=== PATIENT | female | born 1955 | race Hispanic/Latino ===

== ENCOUNTER 2019-05-15 21:43 | Observation (INO) | payer BC, OTHER ==
[~2019-05-15] VITALS: Ht 154.9 cm; Wt 101.2 kg
[~2019-05-15 21:43] MED LIST: ASPIRIN325 MG PO; CENTRUM SILVER1 EAC1 PO; EVISTA60 MG PO; GLIMEPIRIDE4 MG PO; GLIPIZIDE10 MG PO; HYDROCHLOROTHIA25 MG PO; METOPROLOL TART50 MG PO; NITROSTAT0.4 MG SL; NOVOLIN N100 UNIT/2 SC; OS-CAL 500+D C1 EAC1 PO; PLAVIX75 MG PO; PRAVASTATIN SOD20 MG PO; QUINAPRIL HCL40 MG PO; ROBAXIN500 MG PO; TRIAMTERENE-HCTZ1 EA PO
--- OUTSIDE RECORDS SUMMARY | 2019-05-15 21:47 | XMS REPORT ---
Author Author [facility] Address Unknown Phone Unavailable Care Team Providers Care Multimedia Technician Name Role Phone Unavailable Unavailable Payers Payer Name Policy Type Policy Number Effective Date Expiration Date Problems This patient has no known problems. Allergies, Adverse Reactions, Alerts Allergy Name Allergy Type Status Severity Reaction(s) Onset Date Inactive Date Treating Clinician Comments No Known Allergies DA Active U 2018-09-25 00:00:00 No Known Allergies DA Active U 2013-03-23 00:00:00 Medications This patient has no known medications. Results Test Description Test Time Test Comments Text Results Atomic Results Result Comments VAGINA,BIOPSY 2018-09-29 17:19:00 RUN DATE: 09/29/18 [employer] PAGE 1 RUN TIME: 1719 Specimen Inquiry RUN USER: INTERFACE PATIENT: YOSSI MARTINS LOC: [place] U #: [id number] AGE/SX: 62/F ROOM: RE09/26/18[facility] DR: Savanna Wilcox MD : 55 BED: DIS: [place] [facility] [place] SPEC #: [id number] RECD: 09/27/18 STATUS: KARYN REKira #: [id number] CHRISTIE: 09/26/18 [facility] DR: Savanna Wilcox MD ENTERED: 09/27/18 SP TYPE: BX VAGINA OTHR DR: Olman Patel MD ORDERED: GROSS COPIES TO: Olman Patel MD [address] [place] [address] Savanna Wilcox MD [address] [address] PROCEDURES: GROSS (09/29/18-8428) TISSUES: VAGINA, NOS - LESION CLINICAL HISTORY COLLECTION DATE: 09/26/2018 VAGINAL LESION COMMENT Intradepartmental consultation: DMW FINAL DIAGNOSIS Vaginal lesion, biopsy: NODULAR FRAGMENTS OF MARKEDLY INFLAMED GRANULATION TISSUE AND GLYCOGENATED SQUAMOUS MUCOSA COMPATIBLE WITH VAGINAL MUCOSA WITH MILD SUBMUCOSAL CHRONIC INFLAMMATION NEGATIVE FOR MALIGNANCY RRB/gm D [id number] CONTINUED ON NEXT PAGE RUN DATE: 09/29/18 [facility] PAGE 2 RUN TIME: 1719 Specimen Inquiry RUN USER: INTERFACE ---SPEC #: [id number] PATIENT: YOSSI MARTINS #[id number] (Continued) MACROSCOPIC The specimen is received in formalin, labeled with the patient's name, and identified as "Vaginal lesion". It consists of multiple small biopsies of light peter-white and peter-pink tissue ranging from 0.1 cm to up to 0.5 x 0.3 x 0.2 cm. The tissue is entirely submitted for histologic evaluation in a single cassette. GROSS PERFORMED AT [facility] [address] [place] [id number] (p)[phone] MICROSCOPIC MICROSCOPIC PERFORMED AT [facility] All of the stains, including any controls performed, stain appro priately. [facility] [address] [place] [id number] (p)[phone] PERFORMING SITE Processed at: [facility] [address] [place] [id number] Signed SIGNATURE ON FILE Rafael Hunt 09/29/18 1719 END OF REPORT
[2019-05-15] MEDS ORDERED: SODIUM CHLORIDE 0.9% 1000ML 1,000 ML IV STA (21:54)
[2019-05-15] MEDS ORDERED: ONDANSETRON HCL INJ 2MG/ML 2ML 2 MG/ML VIAL IV ONE (21:54)
[2019-05-15] MEDS ORDERED: FAMOTIDINE 20 MG/2 ML VIAL IV ONE (21:55)
[2019-05-15] MEDS ORDERED: MECLIZINE HCL 12.5 MG TAB PO ONE (22:30)
[2019-05-15 22:37] LABS: BASOPHILS # (AUTO) 0.1 (0.0-0.1); BASOPHILS % 0.8 % (0.0-1.0); EOSINOPHILS # (AUTO) 0.3 (0.0-0.4); EOSINOPHILS % 3.6 % (0.0-6.0); HEMATOCRIT 40.4 % (34.2-44.1); HEMOGLOBIN 13.7 g/dL (12.0-16.0); LYMPHOCYTES # (AUTO) 2.5 (1.0-3.2); LYMPHOCYTES % 30.1 % (18.0-39.1); MEAN CORPUSCULAR HEMOGLOBIN 28.6 pg (28-32); MEAN CORPUSCULAR HGB CONC 33.9 g/dL (31-35); MEAN CORPUSCULAR VOLUME 84.3 fL (81-99); MONOCYTES # (AUTO) 0.8 (0.2-0.8); MONOCYTES % 8.9 % (4.4-11.3); NEUTROPHILS # (AUTO) 4.7 (2.1-6.9); NEUTROPHILS % 56.1 % (38.7-80.0); PLATELET COUNT 227 x10e3/uL (140-360); RED BLOOD COUNT 4.79 x10e6/uL (3.6-5.1); RED CELL DISTRIBUTION WIDTH 12.4 % (11.7-14.4)
[2019-05-15 22:56] LABS: ANION GAP 18.9 mmol/L (8-16); CALCIUM 9.8 mg/dL (8.4-10.2); CREATININE, SERUM 1.85 mg/dL (0.57-1.11); POTASSIUM 3.9 mmol/L (3.5-5.1)
[2019-05-15 23:03] LABS: CREATINE KINASE MB 1.2 ng/mL (0-5.0)
--- NOTE | 2019-05-15 23:06 | Diagnostic Imaging Report ---
History:Dizziness Comparison studies: None Technique: Axial images were obtained from the skull base to the vertex. Coronal and sagittal reconstructions obtained from the axial data. Dose modulation, iterative reconstruction, and/or weight based adjustment of the mA/kV was utilized to reduce the radiation dose to as low as reasonably achievable. Findings: Scalp/skull: No abnormalities. No fractures, blastic or lytic lesions. Extra-axial spaces: No masses. No fluid collections. Brain sulci: Appropriate for age. Ventricles: Normal in size and configuration. No hydrocephalus. Parenchyma: No abnormal densities. No masses, hemorrhage, acute or chronic cortical vascular insults. Sellar/suprasellar region: No abnormalities Craniocervical junction: Patent foramen magnum. No Chiari one malformation. Atherosclerotic calcifications of the carotid siphons. IMPRESSION: No acute abnormalities . Signed by: DR Kar Addison M.D. on 05/15/2019 11:02 PM
[2019-05-16] VITALS (8 sets, daily range): BP systolic 117–170; BP diastolic 56–73
--- NOTE | 2019-05-16 00:05 | NUR ---
pt reports feels better after medications. awake alert skin w/d resp nonlab. nad noted.
[2019-05-16] MEDS ORDERED: ASPIRIN 81 MG CHEW TAB PO ONE (00:30)
--- NOTE | 2019-05-16 00:43 | NUR ---
PT PLACED ON TELE BOX 19
[2019-05-16] MEDS ORDERED: LOSARTAN POTAS100 MG PO (00:54)
[2019-05-16] MEDS ORDERED: METHOCARBAMOL500 MG PO (00:54)
[2019-05-16] MEDS ORDERED: TRESIBA SC ×2 (00:54)
[2019-05-16] MEDS ORDERED: GABAPENTIN600 MG PO (00:54)
[2019-05-16] MEDS ORDERED: DEXTROSE 50% SYRINGE 50 ML IV PRN ×2 (01:00→08:30)
--- NOTE | 2019-05-16 01:00 | NUR ---
Patient arrived to the unit from er in a stretcher with c/o nausea,vomiting,chest pain.aaox3.feels diziness.voided.currently no chest pain.assessment done.no resp.distress.tele#[address]iv to left ac saline lock.oriented to the unit.bed locked and in lowest position.phone and call light within reach.instructed to call for assistance as needed.family member at bed side.keep monitor the pt.
[2019-05-16 01:15] LABS: CREATINE KINASE MB 1.2 ng/mL (0-5.0)
--- NOTE | 2019-05-16 01:37 | Diagnostic Imaging Report ---
EXAMINATION: CHEST SINGLE (PORTABLE) INDICATION: Dizzy. High blood pressure. COMPARISON: None FINDINGS: TUBES and LINES: None. LUNGS: Lungs are well inflated. Lungs are clear. There is no evidence of pneumonia or pulmonary edema. PLEURA: No pleural effusion or pneumothorax. HEART AND MEDIASTINUM: Cardiac size is mildly enlarged. BONES AND SOFT TISSUES: No acute osseous lesion. Degenerative changes of the right AC joint. UPPER ABDOMEN: No free air under the diaphragm. IMPRESSION: No acute thoracic abnormality. Signed by: Dr. Binu Miller M.D. on 05/16/2019 1:33 AM
--- NOTE | 2019-05-16 06:37 | NUR ---
CONSULTS INFORMED TO ANSWERING SERVICE.
--- NOTE | 2019-05-16 07:00 | NUR ---
BEDSIDE SHIFT REPORT RECEIVED PT IN STABLE CONDITION, DENIES PAIN, CO DIZZINESS WHEN STANDING, NO OTHER CO VOICED CALL LIGHT IN REACH WILL CONTINUE TO MONITOR
--- NOTE | 2019-05-16 07:15 | NUR ---
Bedside shift report given to the oncoming rn.stable condition.no chest pain noted.
[2019-05-16] MEDS ORDERED: NITROGLYCERIN 0.4 MG SUBL SL PRN (08:30)
[2019-05-16] MEDS ORDERED: INSULIN GLARGINE 100 UNITS/ML VIAL SQ ONE (09:00)
[2019-05-16] MEDS: METHOCARBAMOL 500 MG TAB PO SCH (09:00)
[2019-05-16] MEDS: MULTIVITAMINS/MINERALS TAB PO SCH (09:39)
[2019-05-16] MEDS: ASPIRIN 325 MG TAB PO SCH (09:39)
[2019-05-16] MEDS: GLIPIZIDE 5 MG TAB PO SCH ×2 (09:39→17:00)
[2019-05-16] MEDS: GABAPENTIN 300 MG CAP PO SCH ×2 (09:40→17:00)
[2019-05-16] MEDS: SODIUM CHLORIDE 0.45% 1,000 ML IV SCH (09:40)
[2019-05-16 10:40] LABS: CREATINE KINASE MB 1.2 ng/mL (0-5.0)
[2019-05-16] MEDS: INSULIN LISPRO 100 UNIT/1 ML 3ML VIAL SQ SCH ×3 (12:33→21:56)
--- NOTE | 2019-05-16 12:34 | History and Physical ---
PRIMARY CARE PHYSICIAN: Olman Patel MD GARMENT CUTTER: Tarun Plasencia MD CHIEF COMPLAINT: Chest pain. History of coronary artery disease with two stents. HISTORY OF PRESENT ILLNESS: This is a 63-year-old female with left-sided typical chest pain. She does have baseline coronary artery disease with two previous stent years ago. The patient is otherwise stable. Baseline diabetes type 2, on insulin therapy, hypertension, dyslipidemia. The patient's cardiac enzyme preliminary is negative. She does have chronic kidney disease. The patient is otherwise stable. PAST MEDICAL HISTORY: Chronic kidney disease, stage not yet available. Diabetes type 2, on insulin therapy, carpal tunnel syndrome. Hypertension, osteoarthritis. Dyslipidemia. PAST SURGICAL HISTORY: Again, two coronary artery stents. Cholecystectomy. Complete hysterectomy. Lens implant. Right CTS. REVIEW OF SYSTEMS: Chest pain. No nausea. No vomiting. No abdominal pain. PHYSICAL EXAMINATION: VITAL SIGNS: Temperature is 98, blood pressure 142/61, pulse rate 56, and respirations 18. GENERAL: The patient is not in acute distress. HEENT: Normocephalic, atraumatic. Pupils reactive. Anicteric. NECK: Supple grossly. PULMONARY: Clear. CARDIOVASCULAR: Bradycardia. ABDOMEN: Soft, obese. EXTREMITIES: No cyanosis or edema. NEUROLOGIC: No focal deficit. LABORATORY DATA: Sodium is 137, potassium 3.9, chloride 99, bicarb 23, BUN 44, creatinine 1.8, glucose 363. WBC is 8.3, hemoglobin 13.7, hematocrit 40.4, platelets is 227. EKG is still pending. Cardiac enzymes negative. BMI is 42.13. AST 22, ALT 28, alkaline phosphate 106, total bilirubin 0.3. IMPRESSION: 1. Atypical chest pain associated with coronary artery disease with previous two stent associated with multiple risk factors, diabetes type 2, dyslipidemia, hypertension. 2. Bradycardia, most likely secondary to beta-magda. The patient is taking that at home. 3. Moderate obesity associated with multiple chronic medical illness. 4. Chronic kidney disease, stage not available at this time. PLAN: IV fluid rehydration. Insulin sliding scale coverage to home medication. Echocardiogram to 12-lead EKG. Consultation with Dr. Tarun Plasencia. The patient may benefit from nuclear stress test. Crhistian King MD JT/MODL /[id number]
--- NOTE | 2019-05-16 15:00 | Diagnostic Imaging Report ---
Examination: MRI BRAIN WO CONTRAST History: Dizziness. Comparison studies: Head CT dated May 15, 2019 Technique: Sagittal T2; axial DWI, FLAIR, GRE or SWI, T1, Coronal FLAIR. Intravenous contrast: None Findings: Scalp: No abnormal signal. No masses. Bone marrow: Normal in signal intensity. Brain volume: Adequate for age. No volume loss. Ventricles: Normal in size and configuration. No hydrocephalus. Extra-axial spaces: No abnormalities. Parenchyma: No masses, hemorrhage, or acute or chronic vascular insults. Suprasellar and sellar region: CSF filled sella. Craniocervical junction: No abnormalities. The foramen magnum is patent. No Chiari malformations. Vessels: Normal flow-voids in the arteries and sinuses. Additional findings:Bilateral slitlike orbital lenses. IMPRESSION: No acute intracranial abnormalities. Signed by: Dr. Courtney Lin M.D. on 05/16/2019 2:56 PM
--- NOTE | 2019-05-16 15:30 | NUR ---
DOWN TO NUCLEAR MEDICINE, LEFT IN STABLE CONDITION
--- NOTE | 2019-05-16 16:30 | NUR ---
BACK TO NO DISTRESS NOTED, IVF RECONNECTED, CALL LIGHT IN REACH WILL CONTINUE TO MONITOR
[2019-05-16 18:04] LABS: CREATINE KINASE MB 1.2 ng/mL (0-5.0)
--- NOTE | 2019-05-16 18:50 | NUR ---
Got report from oncoming nurse. Patient in bed. Call light within reach.
--- NOTE | 2019-05-16 18:55 | Consultation ---
DATE OF CONSULTATION: 05/16/2019 Cardiology Consultation Ms. Burkett is a pleasant 63-year-old woman, who presented to the emergency room with a complaint of weakness and dizziness. HISTORY OF PRESENT ILLNESS: The patient reports she was eating some candy, was attending a family event outdoors in the heat, felt weak and dizzy and thinking that she might pass out. Notably, she says a fingerstick blood sugar at that time showed a glucose of 479. She denies chest pain or palpitations. PAST MEDICAL HISTORY: Long and complex with type 2 adult onset diabetes, obesity, hypertension, known coronary artery disease with coronary stenting in 2010 and 2011. Her last cardiac catheterization was in August of 2012, showing patent stent, but this scattered other coronary disease. PAST SURGICAL HISTORY: She had bladder suspension in 2005, bilateral cataracts in 2004, atherectomy of the right popliteal artery in 2016, and cholecystectomy in 1995. MEDICATIONS: Recent home medications include glipizide 10 mg b.i.d., metoprolol tartrate 100 mg twice a day, pravastatin 40 mg daily, triamterene/hydrochlorothiazide 37.5/25 daily, methocarbamol, multivitamin, aspirin 325 mg daily, Tresiba FlexTouch 70 units in the morning and 30 units in the evening, gabapentin 600 mg once a day, and Farxiga 10 mg once a day. PHYSICAL EXAMINATION: GENERAL: Shows an obese, woman, who is about 5 feet 1 inch tall, weighing about 210 pounds. VITAL SIGNS: Blood pressure 145/90. HEAD, EYES, EARS, NOSE, AND THROAT: Unremarkable. NECK: No jugular venous distention. THORAX: Heart sounds S1 and S2 are equal. No murmurs. LUNGS: Clear. ABDOMEN: Markedly protuberant. EXTREMITIES: No cyanosis, clubbing, or edema. LABORATORY DATA: EKG on the chart shows sinus rhythm with no significant ST or T-wave changes. BUN 44 and creatinine 1.8. Cardiac enzymes are negative. ASSESSMENT: 1. Uncontrolled diabetes. 2. Hypertension. 3. Coronary artery disease with previous stenting. 4. Mild renal insufficiency. PLAN: Agree with improved diabetic management. I have discussed with her a diet, exercise, and weight loss many many times. We will plan to check a Cardiolite in the morning to reassess her coronary status. Thank you for asking me to see her in consultation. MD SANDRA Kunz/RAY /[id number] cc: Olman Patel MD
--- NOTE | 2019-05-16 19:18 | NUR ---
REPORT GIVEN TO ONCOMING ENGINEERING INSTRUCTOR RN, PT LEFT IN STABLE CONDITION.
[2019-05-16] MEDS: PRAVASTATIN 20 MG TAB PO SCH (21:55)
[2019-05-16] MEDS: INSULIN GLARGINE 100 UNITS/ML VIAL SQ SCH (21:56)
[2019-05-17] VITALS: BP 128/56
[2019-05-17] MEDS: SODIUM CHLORIDE 0.45% 1,000 ML IV SCH ×3 (02:51→14:30)
[2019-05-17 04:00] VITALS: BP 149/65
[2019-05-17 05:32] LABS: CALCIUM 9.3 mg/dL (8.4-10.2); CREATININE, SERUM 1.11 mg/dL (0.57-1.11)
[2019-05-17 06:27] LABS: CHOL/HDL RATIO 4.5 (3.0-3.6)
--- NOTE | 2019-05-17 07:14 | NUR ---
Gave report to oncoming nurse. Call light within reach. Patient in bed. Granddaughter at bedside
[2019-05-17 07:30] VITALS: BP 127/56
[2019-05-17] MEDS: INSULIN LISPRO 100 UNIT/1 ML 3ML VIAL SQ SCH ×4 (07:30→20:46)
--- NOTE | 2019-05-17 07:30 | NUR ---
REC'D PT AAOX3, GRANDDAUGHTER AT BEDSIDE. ON ROOM AIR AND NO S/S OF DISTRESS. IV TO L FA PATENT AND INTACT. PT NPO SINCE MIDNIGHT 05/17 FOR KIMBERLEY SCAN. BED IN LOWEST POSITION, SIDE RAILS UPX2, AND CALL [place] WITHIN REACH.
--- NOTE | 2019-05-17 07:45 | NUR ---
TECH NOTIFIED NURSE OF BLOOD SUGAR OF 68. RE-CHECKED BLOOD SUGAR AN WAS 74. PATIENT HAS NO S/S OF HYPOGLYCEMIA. SIDE RAILS UPX2, CALL [place] WITHIN REACH, AND BED IN LOWEST POSITION.
[2019-05-17 08:00] VITALS: BP 127/56
[2019-05-17] MEDS: GLIPIZIDE 5 MG TAB PO SCH ×2 (08:00→16:42)
[2019-05-17] MEDS ORDERED: REGADENOSON 0.4 MG/5 ML SYR IV ONE (09:58)
--- NOTE | 2019-05-17 10:00 | NUR ---
PT LEFT FOR KIMBERLEY SCAN. CONSENT SIGNED.
--- NOTE | 2019-05-17 13:00 | NUR ---
GAVE REPORT TO ONCOMING DAY SHIFT NURSE. PT IS SITTING ON RECLINER CHAIR AAOX3 AND NO S/S OF DISTRESS.
[2019-05-17 13:23] VITALS: BP 165/77
[2019-05-17] MEDS: GABAPENTIN 300 MG CAP PO SCH ×2 (13:45→16:42)
[2019-05-17] MEDS: ASPIRIN 325 MG TAB PO SCH (13:45)
[2019-05-17] MEDS: MULTIVITAMINS/MINERALS TAB PO SCH (13:45)
[2019-05-17] MEDS: METHOCARBAMOL 500 MG TAB PO SCH (13:46)
[2019-05-17 16:38] VITALS: BP 161/88
--- NOTE | 2019-05-17 18:50 | NUR ---
Received report from previous nurse. call light within reach. Patient in bed. Friend at bedside.
[2019-05-17] MEDS: INSULIN GLARGINE 100 UNITS/ML VIAL SQ SCH (20:46)
[2019-05-17] MEDS: PRAVASTATIN 20 MG TAB PO SCH (20:50)
[2019-05-18] VITALS: BP 139/63
[2019-05-18] MEDS: SODIUM CHLORIDE 0.45% 1,000 ML IV SCH (00:30)
[2019-05-18 04:00] VITALS: BP 153/65
--- NOTE | 2019-05-18 07:03 | NUR ---
GAVE REPORT TO ONCOMING NURSE. CALL LIGHT WITHIN REACH. PATIENT ASLEEP IN BED.
--- NOTE | 2019-05-18 07:14 | NUR ---
RECEIVED PATIENT RESTING IN BED NO SIGNS OF DISTRESS. BED LOW, WHEELS LOCKED, SIDE RAILS X2. CALL LIGHT IN REACH WILL CONTINUE TO MONITOR PATIENT.
[2019-05-18] MEDS: INSULIN LISPRO 100 UNIT/1 ML 3ML VIAL SQ SCH (07:30)
[2019-05-18 08:00] VITALS: BP 132/63
[2019-05-18] MEDS: GLIPIZIDE 5 MG TAB PO SCH (08:00)
[2019-05-18] MEDS: GABAPENTIN 300 MG CAP PO SCH (08:39)
[2019-05-18] MEDS: ASPIRIN 325 MG TAB PO SCH (08:39)
[2019-05-18] MEDS: MULTIVITAMINS/MINERALS TAB PO SCH (08:39)
[2019-05-18] MEDS: METHOCARBAMOL 500 MG TAB PO SCH (08:39)
[2019-05-18 09:49] VITALS: BP 132/63
--- NOTE | 2019-05-18 10:40 | NUR ---
REMOVED PATIENTS IV. CATHETER TIP INTACT ON REMOVAL AND PRESSURE DRESSING APPLIED.
--- NOTE | 2019-05-18 11:06 | NUR ---
PATIENT DISCHARGED FROM FACILITY. PATIENT GATHERED ALL PERSONAL BELONGINGS, DISCHARGE INSTRUCTIONS, AND FOLLOW UP INFORMATION. PATIENT LEFT UNIT IN WHEELCHAIR AND WENT HOME VIA PRIVATE AUTO. NO SIGNS OF DISTRESS WHEN LEAVING FACILITY.
[2019-05-18 12:00] VITALS: BP 173/74
--- NOTE | 2019-05-18 12:06 | Myoview Stress Test ---
DATE OF STUDY: 05/17/2019 00:00:00 Stress Test - Treadmill ONLY The patient had resting perfusion images after an injection of 11.5 mCi of technetium-99m Myoview. Later due to inability to exercise, she was given Lexiscan 0.4 mg intravenously and shortly afterwards 32 mCi of technetium-99m Myoview. Perfusion images were taken by rotational tomography. Comparison of resting and Lexiscan stress images show no evidence of any perfusion defect. Additionally, gated wall motion images were obtained and calculated ejection fraction normal at 80% without regional wall motion abnormality. FINAL IMPRESSIONS: 1. Normal Lexiscan Myoview for perfusion. 2. Normal left ventricular function with calculated ejection fraction of 80%. MD SANDRA Kunz/MODL /[id number] cc: Christian King MD
== END 2019-05-18 11:06 | disposition home or self-care (01) ==
LOC: ER 21:43 → ERHOLD 05-16 00:27 → MED/SURG 05-16 01:16
PROVIDERS: ADMIT Internal Medicine; ATTEND Internal Medicine
DX: R07.89 Other chest pain (principal); E11.01 Type 2 diabetes mellitus with hyperosmolarity with coma; I25.10 Atherosclerotic heart disease of native coronary artery without angina pectoris; Z95.5 Presence of coronary angioplasty implant and graft; Z79.4 Long term (current) use of insulin; E78.5 Hyperlipidemia, unspecified; E11.22 Type 2 diabetes mellitus with diabetic chronic kidney disease; I12.9 Hypertensive chronic kidney disease with stage 1 through stage 4 chronic kidney disease, or unspecified chronic kidney disease; N18.9 Chronic kidney disease, unspecified; R00.1 Bradycardia, unspecified; E66.9 Obesity, unspecified; Z68.41 Body mass index [BMI] 40.0-44.9, adult; N28.9 Disorder of kidney and ureter, unspecified; E11.65 Type 2 diabetes mellitus with hyperglycemia
CPT/HCPCS: 36415 ×4; 70450; 70551; 71045; 78452; 80048; 80053; 80061; 82550 ×2; 82553 ×2; 82948 ×4; 83036; 83690; 84484 ×2; 85025; 93005; 93017; 93306; 99284; A9502; G0378 ×3; J1815; J2405; J2785; J7030; J8597; 78451; J7799

== ENCOUNTER → 2021-02-05 | Outpatient (CLI) | payer MEDICARE ==
[~2021-02-05] MED LIST changes: +GABAPENTIN600 MG PO; +LOSARTAN POTAS100 MG PO; +METHOCARBAMOL500 MG PO; +TRESIBA SC
== END ==
LOC: CARD 10:32
PROVIDERS: ATTEND Internal Medicine
DX: I73.9 Peripheral vascular disease, unspecified (principal)
CPT/HCPCS: 93925

== ENCOUNTER 2021-03-12 15:34 | Emergency (ER) | payer MEDICARE ==
[~2021-03-12] VITALS: Ht 154.9 cm; Wt 101.2 kg
[2021-03-12] MEDS ORDERED: MECLIZINE HCL12.5 MG PO (15:53)
== END 2021-03-12 16:30 | disposition home or self-care (01) ==
LOC: ER 15:42
DX: R42 Dizziness and giddiness (principal); R94.31 Abnormal electrocardiogram [ECG] [EKG]; I10 Essential (primary) hypertension; E11.9 Type 2 diabetes mellitus without complications
CPT/HCPCS: 93005; 99282

== ENCOUNTER → 2021-03-31 | Day surgery (SDC) | payer MEDICARE ==
[2021-03-26 14:27] LABS: BASOPHILS % 0.2 % (0.0-1.0); HEMATOCRIT 41.3 % (34.2-44.1); HEMOGLOBIN 13.4 g/dL (12.0-16.0); LYMPHOCYTES # (AUTO) 1.1 (1.0-3.2); LYMPHOCYTES % 11.4 % (18.0-39.1); MEAN CORPUSCULAR HEMOGLOBIN 27.6 pg (28-32); MEAN CORPUSCULAR HGB CONC 32.4 g/dL (31-35); MEAN CORPUSCULAR VOLUME 85.2 fL (81-99); MONOCYTES # (AUTO) 0.3 (0.2-0.8); MONOCYTES % 2.8 % (4.4-11.3); NEUTROPHILS # (AUTO) 8.5 (2.1-6.9); NEUTROPHILS % 85.2 % (38.7-80.0); PLATELET COUNT 192 x10e3/uL (140-360); RED BLOOD COUNT 4.85 x10e6/uL (3.6-5.1); RED CELL DISTRIBUTION WIDTH 13.2 % (11.7-14.4)
[2021-03-26 14:44] LABS: CALCIUM 8.8 mg/dL (8.4-10.2); CREATININE, SERUM 1.69 mg/dL (0.57-1.11)
[~2021-03-31] MED LIST changes: +ASPIRIN81 MG PO; +BUPIVACAINE HCL 0.5% INJ 30 ML VIAL INJ ONE; +DEXAMETHASONE SOD PHOS INJ 4 MG/ML VIAL ONE; +DEXTROSE 5% 250ML 250 ML IV ONE; +FISH OIL 1,0001 EAC2 PEG; +GABAPENTIN300 MG PO; +MECLIZINE HCL12.5 MG PO; +PREDNISONE10 MG PO; +SODIUM CHLORIDE 0.9% 50ML 50 ML ONE; +TRESIBA100 UNIT/1 SQ; +TRULICITY1.5 MG/0.5 INJ; +VITAMIN B122500 MCG PO; +VITAMIN C1000 MG PO
[2021-03-31 09:55] LABS: CALCIUM 8.3 mg/dL (8.4-10.2); CREATININE, SERUM 1.26 mg/dL (0.57-1.11)
== END | disposition home or self-care (01) ==
LOC: OR 05:11
PROVIDERS: ATTEND Podiatrist Foot & Ankle Surgery
DX: M77.31 Calcaneal spur, right foot (principal); M72.2 Plantar fascial fibromatosis; E11.9 Type 2 diabetes mellitus without complications; R42 Dizziness and giddiness; I25.10 Atherosclerotic heart disease of native coronary artery without angina pectoris; I10 Essential (primary) hypertension; Z01.812 Encounter for preprocedural laboratory examination; Z01.818 Encounter for other preprocedural examination; Z79.4 Long term (current) use of insulin; Z79.82 Long term (current) use of aspirin; Z95.5 Presence of coronary angioplasty implant and graft
CPT/HCPCS: 28119; 36415 ×2; 71046; 80048 ×2; 82948; 85025; J0690; J1100; J7070

== ENCOUNTER → 2021-07-09 | Outpatient (RCR) | payer OTHER ==
[~2021-07-09] MED LIST changes: -BUPIVACAINE HCL 0.5% INJ 30 ML VIAL INJ ONE; -DEXAMETHASONE SOD PHOS INJ 4 MG/ML VIAL ONE; -DEXTROSE 5% 250ML 250 ML IV ONE; -FISH OIL 1,0001 EAC2 PEG; +FISH OIL 1,0001 EAC2 PO; -SODIUM CHLORIDE 0.9% 50ML 50 ML ONE
== END ==
LOC: PT 06-24 14:38
PROVIDERS: ATTEND Podiatrist Foot & Ankle Surgery
DX: M77.31 Calcaneal spur, right foot (principal); M72.2 Plantar fascial fibromatosis; M79.671 Pain in right foot; M25.671 Stiffness of right ankle, not elsewhere classified; R26.2 Difficulty in walking, not elsewhere classified

== ENCOUNTER 2021-07-13 14:29 | Outpatient (RCR) | payer MEDICARE, OTHER | END 2021-08-09 | LOC: PT 14:29 | PROVIDERS: ATTEND Podiatrist Foot & Ankle Surgery | DX: M72.2 Plantar fascial fibromatosis (principal); M77.31 Calcaneal spur, right foot; M79.671 Pain in right foot; R26.2 Difficulty in walking, not elsewhere classified; M25.671 Stiffness of right ankle, not elsewhere classified ==

== ENCOUNTER → 2022-02-09 | Outpatient (CLI) | payer MEDICARE | LOC: US 10:30 | PROVIDERS: ATTEND Internal Medicine Nephrology | DX: E11.21 Type 2 diabetes mellitus with diabetic nephropathy (principal); I12.9 Hypertensive chronic kidney disease with stage 1 through stage 4 chronic kidney disease, or unspecified chronic kidney disease; N18.31 Chronic kidney disease, stage 3a; E87.5 Hyperkalemia | CPT/HCPCS: 76770 ==

== ENCOUNTER → 2022-06-15 | Outpatient (CLI) | payer MEDICARE | LOC: US 08:12 | PROVIDERS: ATTEND Family Medicine | DX: R74.01 Elevation of levels of liver transaminase levels (principal) | CPT/HCPCS: 76705 ==

== ENCOUNTER → 2022-12-21 | Day surgery (SDC) | payer MEDICARE ==
[2022-12-16 13:59] LABS: BASOPHILS # (AUTO) 0.1 (0.0-0.1); BASOPHILS % 0.6 % (0.0-1.0); EOSINOPHILS # (AUTO) 0.2 (0.0-0.4); EOSINOPHILS % 2.5 % (0.0-6.0); HEMATOCRIT 39.2 % (34.2-44.1); HEMOGLOBIN 12.6 g/dL (12.0-16.0); LYMPHOCYTES # (AUTO) 1.9 (1.0-3.2); LYMPHOCYTES % 23.1 % (18.0-39.1); MEAN CORPUSCULAR HEMOGLOBIN 28.3 pg (28-32); MEAN CORPUSCULAR HGB CONC 32.1 g/dL (31-35); MEAN CORPUSCULAR VOLUME 87.9 fL (81-99); MONOCYTES # (AUTO) 0.8 (0.2-0.8); MONOCYTES % 9.3 % (4.4-11.3); NEUTROPHILS # (AUTO) 5.4 (2.1-6.9); NEUTROPHILS % 64.1 % (38.7-80.0); PLATELET COUNT 197 x10e3/uL (140-360); RED BLOOD COUNT 4.46 x10e6/uL (3.6-5.1); RED CELL DISTRIBUTION WIDTH 13.8 % (11.7-14.4)
[~2022-12-21] MED LIST changes: +CRESTOR10 MG PO; +DEXTROSE 5% 250ML 250 ML IV ONE; +JARDIANCE10 MG PO; +KERENDIA10 MG PO; +LIDOCAINE HCL 2% LOCAL INJ 5 ML SDV VIAL INJ ONE; +NOVOLOG100 UNIT/1 SC; +POVIDONE IODINE 0.05% 0.05 % ML PO ONE; +PROPOFOL IV EMULSION 10 MG/ML 20 ML VIAL ONE; +PROPOFOL IV EMULSION 50 ML IV ONE; +RENA-VITE TABL0.8 MG PO; +VITAMIN D3 COM1 EACH PO
[2022-12-21 12:43] VITALS: BP 118/57
== END | disposition home or self-care (01) ==
LOC: OR 10:28
PROVIDERS: ATTEND Internal Medicine Gastroenterology
DX: Z12.11 Encounter for screening for malignant neoplasm of colon (principal); D12.2 Benign neoplasm of ascending colon; D12.3 Benign neoplasm of transverse colon; K59.00 Constipation, unspecified; K64.8 Other hemorrhoids; K21.9 Gastro-esophageal reflux disease without esophagitis; I25.10 Atherosclerotic heart disease of native coronary artery without angina pectoris; E11.9 Type 2 diabetes mellitus without complications; E78.5 Hyperlipidemia, unspecified; I10 Essential (primary) hypertension; Z01.810 Encounter for preprocedural cardiovascular examination; Z01.812 Encounter for preprocedural laboratory examination; Z79.85 Long-term (current) use of injectable non-insulin antidiabetic drugs; Z79.84 Long term (current) use of oral hypoglycemic drugs; Z79.4 Long term (current) use of insulin; Z79.82 Long term (current) use of aspirin; Z79.899 Other long term (current) drug therapy; Z79.02 Long term (current) use of antithrombotics/antiplatelets; Z68.36 Body mass index [BMI] 36.0-36.9, adult
CPT/HCPCS: 36415 ×2; 45384; 82948; 85025; 88305; 93005; J2001; J2704 ×2; J7070; 45378

== ENCOUNTER → 2023-02-21 | Outpatient (CLI) | payer MEDICARE ==
[~2023-02-21] MED LIST changes: -DEXTROSE 5% 250ML 250 ML IV ONE; -LIDOCAINE HCL 2% LOCAL INJ 5 ML SDV VIAL INJ ONE; -POVIDONE IODINE 0.05% 0.05 % ML PO ONE; -PROPOFOL IV EMULSION 10 MG/ML 20 ML VIAL ONE; -PROPOFOL IV EMULSION 50 ML IV ONE
== END ==
LOC: RAD 13:34
PROVIDERS: ATTEND Nurse Practitioner Gerontology
DX: M54.40 Lumbago with sciatica, unspecified side (principal); M25.552 Pain in left hip
CPT/HCPCS: 72110